=== PATIENT | male | born 1960 | race Two or more races ===

== ENCOUNTER 2017-01-20 10:45 | Emergency (ER) | payer BC ==
[~2017-01-20] VITALS: Ht 188 cm; Wt 102.1 kg
[2017-01-20 11:10] VITALS: BP 135/81
--- NOTE | 2017-01-20 11:24 | Emergency Room Report ---
History of Present Illness General Chief Complaint: Upper Respiratory Illness Source: Patient Present Illness HPI > 1 week of URI sy. Had congestion, now slightly improved. Cough keeping awake at night. Never with wheezing in past, thinks he had some. Nasal congestion. No sore throat. No known fevers. No NVD., No rashes, change in stool, dysuria. Some chest discomfort, not exertional. Recent trip to [facility]. Went to work and felt bad. Sent here. Allergies: Coded Allergies: No Known Allergies (Unverified , 01/20/17) Patient History Past Medical History: see triage record Social History Narrative works in IT Reviewed Nursing Documentation: PMH: Agreed, PSxH: Agreed Nursing Documentation-PMH Past Medical History: No History, Except For Hx Hypertension: Yes Review of Systems All Other Systems: negative except mentioned in HPI Physical Exam Vital Signs Date Time Temp Pulse Resp B/P Pulse Ox O2 Delivery O2 Flow Rate FiO2 01/20/17 11:01 98.2 75 20 143/87 99 Room Air Sp02 EP Interpretation: reviewed, normal General Appearance: well appearing, no apparent distress, GCS 15 Head: normocephalic, atraumatic Eyes: bilateral eye PERRL, bilateral eye normal inspection ENT: hearing grossly normal, normal voice, moist mucus membranes, other - no erythema Neck: full range of motion, supple Respiratory: lungs clear, normal breath sounds, no respiratory distress, speaking full sentences Cardiovascular #1: regular rate, rhythm Cardiovascular #2: 2+ radial (R) Gastrointestinal: normal inspection, normal bowel sounds, non tender, soft Musculoskeletal: back normal, digits/nails normal, gait/station normal, normal range of motion, no calf tenderness Neurologic: alert, oriented x3, normal gait, grossly normal Psychiatric: mood/affect normal Skin: no rash Medical Decision Making Diagnostic Impression: Primary Impression: Upper respiratory infection Qualified Codes: J06.9 - Acute upper respiratory infection, unspecified Additional Impression: Bronchospasm ER Course Patient presents with upper respiratory symptomatology. Differential includes asthma, arthritis, pneumonia, viral syndrome next others. Evaluation will be with EKG and chest x-ray. Also the patient is herself wheezing. He'll be treated with an albuterol treatment. No laboratory evaluation is indicated at this time. EKG is unremarkable. Chest x-ray is clear. Improved after albuterol. He is concerned about his blood pressure. Will follow with his PMD. Patient is stable for outpatient observation and treatment. EKG Diagnostic Results Rate: normal Rhythm: NSR ST Segments: no acute changes - LAD Rhythm Strip Diag. Results EP Interpretation: yes Rhythm: NSR, no PVC's, no ectopy Chest X-Ray Diagnostic Results EP Interpretation: Yes Findings: no consolidation, no effusion, no pneumothorax, no acute cardiopulmonary disease Number of Views: 1 Last Vital Signs Date Time Temp Pulse Resp B/P Pulse Ox O2 Delivery O2 Flow Rate FiO2 01/20/17 13:46 80 16 129/83 98 Room Air 01/20/17 12:00 21 01/20/17 11:10 97.5 Status: improved Disposition: HOME, SELF-CARE Condition: Improved Scripts Ibuprofen* (MOTRIN*) 600 Mg Tablet 600 MG ORAL Q6H Y for For Pain, #16 TAB Prov: Herb De Paz M.D. 01/20/17 Chlorpheniramine Maleate (CHLOR-TRIMETON) 4 Mg Tablet 4 MG PO Q6HR Y for congestion, #10 TAB Prov: Herb De Paz M.D. 01/20/17 Codeine/Promethazine Hcl* (PROMETHAZINE-CODEINE SYRUP*) 118 Ml Syrup 5 ML ORAL Q6H Y for For Cough, #60 ML 0 Refills Prov: Herb De Paz M.D. 01/20/17 Herb De Paz M.D. Jan 20, 2017 11:24
[2017-01-20] MEDS ORDERED: Albuterol ud Inhalation HHN ONE (11:45)
--- NOTE | 2017-01-20 12:42 | Diagnostic Imaging Report ---
Indication: COUGH Technique: PA and lateral views of the chest. Findings: Comparison: None Linear density left lung base. Right lung clear. Lungs normally, symmetrically inflated. The bones and extra pulmonary soft tissues, cardiomediastinal silhouette, pulmonary vasculature, and pleural surfaces are unremarkable. IMPRESSION: Subsegmental atelectasis versus scarring left lung base Otherwise negative PA and lateral chest radiographs
[2017-01-20 13:10] VITALS: BP 132/87
[2017-01-20] MEDS ORDERED: CHLOR-TRIMETON4 MG PO (13:25)
[2017-01-20] MEDS ORDERED: IBUPROFEN600 MG ORAL (13:25)
[2017-01-20] MEDS ORDERED: PROMETHAZINE-C118 M1 ORAL (13:25)
[2017-01-20 13:46] VITALS: BP 129/83
--- NOTE | 2017-01-22 15:51 | Cardiology Report ---
APPROVED REPORT EKG Measurement Heart [id number] Normal sinus rhythm Left axis deviation Pulmonary disease pattern Nonspecific ST and T wave abnormality Abnormal ECG
== END 2017-01-20 13:46 | disposition home or self-care (01) ==
LOC: EMR 11:36
DX: J06.9 Acute upper respiratory infection, unspecified (principal); J98.01 Acute bronchospasm; I10 Essential (primary) hypertension
CPT/HCPCS: 71020; 93005; 94640; 94664; 99284